=== PATIENT | male | born 1975 | race Caucasian/White ===

== ENCOUNTER 2019-01-12 08:52 | Emergency (ER) | payer OTHER ==
--- OUTSIDE RECORDS SUMMARY | 2019-01-12 09:07 | XMS REPORT | Continuity of Care Document ---
:1975 External Reference #:[id number] Author Name Susana Adame Care Team Providers Name Role Phone Anjali Tao M.D. Primary Care Physician Unavailable Payers Date Identification Numbers Payment Provider Subscriber Expires: 2018 Policy Number: [id number] [facility] [employer] Group Number: [id number] [address] PayID: [id number] [place] [address] Effective: 2018 Policy Number: [id number] [employer] [place] PayID: [id number] [address] [place] [address] Problems Active Problems Provider Date Chronic allergic conjunctivitis Vignesh Guerra MD Onset: 12/28/2018 Benign paroxysmal positional vertigo Vignesh Guerra MD Onset: 12/28/2018 Psoriasis Vignesh Guerra MD Onset: 12/28/2018 Allergic rhinitis Vignesh Guerra MD Onset: 12/28/2018 Family History Date Family Member(s) Observation Comments Father Colon Cancer Mother Lung Cancer Social History Type Date Description Comments Sex Unknown Tobacco Use Start: Unknown Never Smoked Cigarettes Smoking Status Reviewed: 12/28/18 Never Smoked Cigarettes ETOH Use Occasionally consumes alcohol Tobacco Use Start: Unknown Patient has never smoked Recreational Drug Use Denies Drug Use Allergies, Adverse Reactions, Alerts Description No Known Drug Allergies Medications Active Medications SIG Qnty Indications Ordering Date Provider Olopatadine HCL one drop in each 10ml H10.45 Vignesh Guerra MD 12/28/2018 0.1% eye twice a day Solution Flonase Allergy two sprays per 15.800ml J30.2 Vignesh Guerra MD 12/28/2018 Relief nostril once 50mcg/Act daily Suspension Bupropion HCL 1 daily 30tabs Vignesh Guerra MD 75mg Tablets Clobetasol apply to skin Unknown Propionate E twice a day as 0.05% directed Cream Zyrtec Allergy 1 by mouth as Unknown 10mg needed Tablets Vital Signs Date Vital Result Comment 12/28/2018 2:29pm Weight 224.00 lb Heart Rate 74 /min BP Systolic 120 mmHg BP Diastolic 74 mmHg Respiratory Rate 16 /min Body Temperature 98.3 F O2 % BldC Oximetry 98 % 12/02/2018 2:14pm Height 74 inches 6'2" Weight 222.00 lb Heart Rate 76 /min BP Systolic 120 mmHg BP Diastolic 74 mmHg Respiratory Rate 18 /min Body Temperature 98.3 F Pain Level 0 O2 % BldC Oximetry 97 % BMI (Body Mass Index) 28.5 kg/m2 Procedures Date Code Description Status 11/08/2010 77699 Rad Exam; Knee Comp Completed 09/20/2009 64183 Arthroscopy,Knee,Meniscectomy Medial Or Lateral Completed 09/12/2009 64289 Rad Exam; Knee Comp Completed Encounters Type Date Location Provider Dx Diagnosis Office Visit 12/28/2018 DO Not Use Care Vignesh Guerra MD H10.45 Other chronic 2:20p [facility] conjunctivitis J30.2 Other seasonal allergic rhinitis L40.0 Psoriasis vulgaris H81.10 Benign paroxysmal vertigo, unspecified ear Office Visit 12/02/2018 2:00p DO Not Use Care Vignesh Guerra MD F39 Unspecified mood [facility] disorder J30.2 Other seasonal allergic rhinitis H81.10 Benign paroxysmal vertigo, unspecified ear L40.0 Psoriasis vulgaris Office Visit 11/08/2010 9:45a [facility] Enrique Oliveira, 844.9 Sprains & Of C.M.A. M.D. Strains Knee & Leg Unspec 727.09 Synovitis & Tenosynovitis Other Office Visit 09/19/2009 9:30a Orthopedic Enrique Oliveira, 836.0 Dislocation Knee Services Of M.D. Tear Of Medial C.M.A. Cartilage Or Meniscus [facility] Office Visit 09/14/2009 1:45p Orthopedic Catherine Jain, 836.0 Dislocation Knee Services Of [place] Tear Of Medial C.M.A. Cartilage Or Meniscus [facility] Office Visit 09/12/2009 10:00a Orthopedic JainCatherine, 844.9 Sprains & Strains Services Of [place] Knee & Leg Unspec C.M.A. 836.0 Dislocation Knee Tear Of Medial Cartilage Or Meniscus Joann Plan of Treatment Future Appointment(s):01/28/2019 1:00 pm - Anjali Tao MD at [facility] - [facility]12/28/2018 - Vignesh Guerra MDH10.45 Other chronic allergic conjunctivitisNew Medication:Olopatadine HCL 0.1 % - one drop in each eye twice a dayComments:Will trial antihistamine with Mast cell stabilizer: olopatadine gtt. He has requested referral to Allergy (Dr. Upton) as well.Follow up: Establishing with Dr. Tao next month (his 's PCP)J30.2 Other seasonal allergic rhinitisNew Medication:Flonase Allergy Relief 50 mcg/Act - two sprays per nostril once dailyComments:Continue Zyrtec and will trial Flonase for breakthrough symptoms. Referral to Dr. Upton as he requests.Referral:Nikky Upton MD, Allergy & FxiwnuwzhkX24.0 Psoriasis rirbjeyhD71.10 Benign paroxysmal vertigo, unspecified earComments:Resolved after one session of [place] with [facility] PT.
[2019-01-12] MEDS ORDERED: LORazepam INJ* 2 MG/ML 1 ML VIAL IV PUSH ONE (09:09)
[2019-01-12] MEDS ORDERED: Lorazepam PYXIS KEY PRN (09:09)
[2019-01-12] MEDS ORDERED: Lorazepam PYXIS KEY ONE (09:13)
--- NOTE | 2019-01-12 09:37 | ED ---
Head Injury - HPI Summary HPI Summary: Patient presents to the ED with CC of head injury and dizziness following. Patient states he fell this morning attempting to use the restroom. Patient is unsure about the last few days and states he does not recall the events over the past few days or hours. Oriented to person place and time. Denies severe NARVAEZ. Denies other symptoms. He is extremely diaphoretic on arrival by EMS. Patient endorses pain to the R side of the head 08/12, but endorses 05/12 dizziness. Hx of vertigo. Endorses N/V. On reexamination, patient states he feels he may have stretched due to having a pain in his low back and immediately following the stretch, his witnessed him "pass out." He then hit his head onto the floor as he went down. Denies any back pain currently. No cardiac history. 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 Patient denies blood thinners. - History Of Current Complaint Chief Complaint: EDFall Stated Complaint: UNRESPONSIVE PER EMS Time Seen by Provider: 01/12/19 08:55 Hx Obtained From: Patient Mechanism Of Injury: Direct Blow Onset/Duration: Started Hours Ago Onset of Pain: Hours Severity Currently: Severe Severity Initially: Severe Pain Intensity: 0 Pain Scale Used: 0-10 Numeric Location of Head Injury: Other: - right forehead with cephaahematoma Character: Throbbing Aggravating Factor(s): Movement Alleviating Factor(s): Rest, Ice Associated Signs And Symptoms: Negative - Risk Factors SDH Risk Factor: Negative - Allergies/Home Medications Allergies/Adverse Reactions: Allergies Allergy/AdvReac Type Severity Reaction Status Date / Time No Known Allergies Allergy Verified 01/12/19 09:04 Home Medications: Home Medications Cetirizine* [ZyrTEC 10 MG TAB*] 10 mg PO DAILY 01/12/19 [History Confirmed 01/12] Olopatadine HCl 1 drop BOTH EYES BID 01/12/19 [History Confirmed 01/12/19] buPROPion TAB* [Wellbutrin TAB*] 75 mg PO DAILY 01/12/19 [History Confirmed 07/21] PMH/Surg Hx/FS Hx/Imm Hx Previously Healthy: Yes - Immunization History Hx Pertussis Vaccination: No Immunizations Up to Date: Yes Infectious Disease History: No Infectious Disease History: Denies: Traveled Outside the [place] in Last 30 Days - Social History Occupation: Employed Full-time Lives: With Family Alcohol Use: Rare Hx Substance Use: No Substance Use Type: Reports: None Smoking Status (MU): Never Smoked Tobacco Review of Systems Constitutional: Negative Negative: Fever, Chills, Fatigue, Skin Diaphoresis Negative: Palpitations, Chest Pain Negative: Shortness Of Breath, Cough Genitourinary: Negative Positive: no symptoms reported, see HPI Negative: Arthralgia, Myalgia Skin: Negative Neurological: Other - dizziness All Other Systems Reviewed And Are Negative: Yes Physical Exam Triage Information Reviewed: Yes Vital Signs On Initial Exam: Initial Vitals Temp Pulse Resp BP Pulse Ox 96.2 F 69 17 118/64 99 01/12/19 09:00 01/12/19 09:00 01/12/19 09:00 01/12/19 09:00 01/12/19 09:00 Vital Signs Reviewed: Yes Appearance: Positive: Well-Appearing, Well-Nourished, Signs of Trauma - right eye contusion and ecchymosis without surrounding erythema Skin: Positive: Warm, Skin Color Reflects Adequate Perfusion Head/Face: Positive: Normal Head/Face Inspection Eyes: Positive: EOMI, Conjunctiva Clear, Other: - no evidence of entrapment Neck: Positive: Supple, No Lymphadenopathy Respiratory/Lung Sounds: Positive: Clear to Auscultation, Breath Sounds Present Cardiovascular: Positive: Pulses are Symmetrical in both Upper and Lower Extremities Neurological: Positive: Disoriented - patient confused prior to arrival Psychiatric: Positive: Normal, Affect/Mood Appropriate Diagnostics - Vital Signs Vital Signs Temp Pulse Resp BP Pulse Ox 01/12/19 09:07 66 21 118/63 96 01/12/19 09:06 64 11 98 01/12/19 09:00 96.2 F 69 17 118/64 99 - Laboratory Result Diagrams: 01/12/19 11:21 01/12/19 11:21 Lab Statement: Any lab studies that have been ordered have been reviewed, and results considered in the medical decision making process. Head Injury Course/Dx Course Of Treatment: Unrelated to the ED, the patient is given Ativan 1 mg IV. He was given Zofran per EMS prior to arrival. He continues to feel dizzy. According to [place] CT Head Rules, CT WAS obtained d/t: Trauma from dangerous mechanism (eg, fall greater than 3 feet, MVA with ejection from vehicle, or pedestrian vs. motor vehicle accident)CT obtained which was no intracranial abnormalities. An EKG and blood work was also obtained due to syncopal episode. No cardiac history. Patient is otherwise healthy. EKG shows normal sinus rhythm with a rate of 72. Labs show no acute findings. Reexamination, patient feels improved. There is some bruising to the right eye, but no other signs of trauma identified. Complete neuro exam completed and WNL. Head/face inspection shows small cephalohematoma over the R eye. EOMI, CARLA. bvious confusion or memory loss per patient and family. MMSE OK. GCS 15. Patient oriented to person, place and date. No obvious deformity or signs of trauma. Patient denies LOC. Visual acuity intact. On arrival, patient endorsing memory loss and confusion, however is A and O x 3. . ROM, strength, reflexes in upper and lower extremity intact, sensation intact. Patient ambulating well on re-examination. Return precautions and information on concussions given to patient and at bedside. Patient discharged with return precautions and post-concussive symptoms explained to patient. Patient agrees to follow up and return if needed. Given ativan, meclizine and zofran for symptoms. Observed x 4.5 hours with no acute changes. - Diagnoses Differential Diagnosis/HQI/PQRI: Concussion With LOC, Concussion Without LOC, Contusion, Hematoma Provider Diagnoses: Concussion Discharge - Sign-Out/Discharge Documenting (check all that apply): Patient Departure Patient Received Moderate/Deep Sedation with Procedure: No - Discharge Plan Condition: Stable Disposition: HOME Prescriptions: LORazepam TAB(*) [Ativan 1 MG TAB (*)] 1 mg PO Q8H PRN #10 tab MDD 3 PRN Reason: Vertigo Meclizine TAB* [Antivert 12.5 TAB*] 12.5 mg PO QID #20 tab MDD 4 Ondansetron ODT TAB* [Zofran 4 MG Odt TAB*] 4 mg PO Q6H PRN #20 tab.odt MDD 4 PRN Reason: Nausea Patient Education Materials: Syncope (ED), Concussion (ED), Post Concussion Syndrome (ED) Referrals: Anjali Tao MD [Primary Care Provider] - Additional Instructions: Brain rest as much as possible Zofran up to four times daily for nausea Meclizine up to four times daily for dizziness/nausea/vertigo symptoms Ativan as needed for dizziness symptoms not well controlled with meclizine If you are asymptomatic, you may begin to do normal daily activities. If you develop any symptoms while doing these activities, stop, close your eyes and rest Concussive symptoms improve the most with brain rest As discussed, you MAY have had a vasovagal episode, so I have given you information on this (below) Please follow up with PCP (call office today or tomorrow for an appt) Please return for severe headaches, nausea or vomiting not well controlled with your medications or other worsening symptoms Tylenol or ibuprofen for Headaches Vasovagal/neurocardiogenic syncope: Neurocardiogenic syncope (also known as vasovagal syncope) is a benign condition characterized by a self limited episode of systemic hypotension. Before you faint due to vasovagal syncope, you may experience some of the following: Pale skin Lightheadedness Tunnel vision your field of vision narrows so that you see only what's in front of you Nausea Feeling warm A cold, clammy sweat Yawning Blurred vision The vasovagal syncope trigger causes your heart rate and blood pressure to drop suddenly. That leads to reduced blood flow to your brain, causing you to briefly lose consciousness. Recovery after a vasovagal episode generally begins in less than a minute. However, if you stand up too soon after fainting within about 15 to 30 minutes you're at risk of fainting again. The vasovagal syncope trigger causes your heart rate and blood pressure to drop suddenly. That leads to reduced blood flow to your brain, causing you to briefly lose consciousness. I recommend you follow up with your PCP. Drink plenty of fluids and get rest. If symptoms occur again, do not attempt to get up right away. Instead, put your head between your legs, or lay flat until you begin to feel improved. - Billing Disposition and Condition Condition: STABLE Disposition: Home
[2019-01-12] MEDS ORDERED: Meclizine TAB* 12.5 MG PO ONE (11:12)
[2019-01-12 11:36] LABS: ABS Eosinophils 0.1 10^3/ul (0-0.6); ABS Lymphocytes 1.6 10^3/ul (1.0-4.8); ABS Monocytes 0.6 10^3/ul (0-0.8); ABS Neutrophils 10.9 10^3/ul (1.5-7.7); Eosinophil % 0.5 %; Hematocrit 44 % (42-52); Hemoglobin 14.8 g/dL (14.0-18.0); Mean Corpuscular HGB Conc 34 g/dL (31-36); Mean Corpuscular Hemoglobin 29 pg (27-31); Mean Corpuscular Volume 87 fL (80-94); Mean Platelet Volume 7.8 fL (7.4-10.4); Nucleated Red Blood Cells % 0.1; Platelet Count 176 10^3/uL (150-450); Red Blood Count 5.12 10^6 /uL (4.18-5.48); Red Cell Distribution Width 13 % (10-15); White Blood Count 13.2 10^3/uL (3.5-10.8)
[2019-01-12 11:54] LABS: Albumin 4.4 g/dL (3.2-5.2); Albumin/Globulin Ratio 1.6 (1-3); C Reactive Protein 3.1 mg/L (<8.01); Calcium 9.7 mg/dL (8.6-10.3); EGFR African American 75.9 (>60); EGFR Non-African American 62.7 (>60); Globulin 2.8 g/dL (2-4); Total Bilirubin 0.3 mg/dL (0.2-1.0); Total Protein 7.2 g/dL (6.4-8.9)
[2019-01-12 13:46] VITALS: BP 132/62
== END 2019-01-12 13:46 | disposition home or self-care (01) ==
LOC: ED 08:52
DX: S06.0X0A Concussion without loss of consciousness, initial encounter (principal); S00.83XA Contusion of other part of head, initial encounter; W19.XXXA Unspecified fall, initial encounter; Y92.9 Unspecified place or not applicable; R42 Dizziness and giddiness
CPT/HCPCS: 36415; 70450; 80053; 84484; 85025; 86140; 93005; 96374; 99284; A9270-GY; J2060